=== PATIENT | female | born 1985 | race African-American/Black ===

== ENCOUNTER 2016-08-14 10:23 | Emergency (ER) | payer OTHER ==
[~2016-08-14] VITALS: Ht 160 cm; Wt 49.9 kg
[2016-08-14 10:31] VITALS: BP 137/82
[2016-08-14 11:00] LABS: APPEARANCE,URINE Slightly Cloudy (CLEAR); BILIRUBIN,URINE Negative (NEGATIVE); BLOOD, URINE Trace-lysed Ery/uL (NEGATIVE); COLOR,URINE Orange (YELLOW); KETONES,URINE Negative (NEGATIVE); LEUKOCYTE ESTERASE ,URINE Large (NEGATIVE); NITRITE, URINE Positive (NEGATIVE); PH,URINE 5.5 (5.0-8.0); PROTEIN,URINE 30 mg/dl (NEGATIVE); UGLUCOSE 100 MG/DL mg/dL (NEGATIVE)
[2016-08-14 11:11] LABS: ADD URINE CULTURE YES; BACTERIA,URINE Few /HPF (None Seen)
[2016-08-14 11:21] LABS: PREGNANCY TEST URINE QUAL NEGATIVE (NEGATIVE)
== END 2016-08-14 11:41 | disposition home or self-care (01) ==
LOC: ER 10:24
DX: N39.0 Urinary tract infection, site not specified (principal); I10 Essential (primary) hypertension; Z91.010 Allergy to peanuts
CPT/HCPCS: 81000-TC; 84703-TC; 87086-TC; 87186-TC; A4606; Z7610